=== PATIENT | female | born 2000 | race Caucasian/White ===

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

== ENCOUNTER 2024-03-31 18:11 | Inpatient (IN) ==
[2024-03-31 20:17] LABS: Urine Benzodiazepine Screen None Detected (None Detect); Urine Cannabinoids Screen Presumptive Positive (None Detect); Urine Opiates Screen None Detected (None Detect)
[2024-03-31] MEDS ORDERED: Al Hydrox/Mg Hydrox/Simet LIQ 30 ML UDC PO PRN (20:47)
[2024-03-31 22:07] VITALS: BP 143/85
[2024-04-01] MEDS: Vitamin THERAPEUTIC TAB PO SCH (09:52)
== END 2024-04-01 13:50 | disposition home or self-care (01) | DRG 885 ==
LOC: ED 18:11 → EDHOLD 20:35 → BSU 20:58
PROVIDERS: ADMIT Psychiatry & Neurology Psychiatry; ATTEND Student in an Organized Health Care Education/Training Program